=== PATIENT | male | born 1940 | race Caucasian/White ===

== ENCOUNTER 2021-04-11 21:21 | Observation (INO) | payer BC ==
[~2021-04-11] VITALS: Ht 175.3 cm; Wt 69.3 kg
[2021-04-11 21:30] VITALS: BP 127/76; PULSE 82; TEMP 99.1
--- NOTE | 2021-04-11 22:28 | NUR ---
PATIENT IS A DIRECT ADMIT FROM HOME. ADMITTED FOR HEMATURIA AND UNABLE TO VOID. STATED SYMPTOM STARTED AFTER HAVING A PROSTATE BIOPSY YESTERDAY. ALERT AND ORIENTED X4 FAMILY AT BEDSIDE. VSS. PATIENT C/O LOWER ABDOMEN DISCOMFORT. DR. VALDES MADE AWARE OF PATIENT ARRIVAL AND ORDER TO PLACE [address] LEVINE CATHER AND START CBI. LEVINE CATHETER INSERTED WITH BLOODY URINE OUTPUT DRAINED. PATIENT ORIENTED TO ROOM, CALL LIGHT WITHIN REACH.
[2021-04-11] MEDS ORDERED: ASPIRIN E.C. 8181 MG PO (22:43)
[2021-04-11] MEDS ORDERED: FLOMAX 0.40.4 MG/CAP PO (22:44)
[2021-04-11] MEDS ORDERED: MAXZIDE-25MG TA1 TAB PO (22:45)
[2021-04-11] MEDS ORDERED: TOPROL XL 25MG25 MG PO (22:47)
[2021-04-12] VITALS (15 sets, daily range): BP systolic 102–133; BP diastolic 54–78; PULSE 64–88; TEMP 97.8–99.1
--- NOTE | 2021-04-12 06:50 | NUR ---
BLADDER IRRIGATION DONE X3 WITH SMALL AMOUNT OF CLOTH.
--- NOTE | 2021-04-12 06:55 | NUR ---
resting in bed, bedside shift report received from MIGUELANGEL Carnes
--- NOTE | 2021-04-12 08:00 | NUR ---
remains resting in bed, full assessment completed, see interventions for further info, urine is light pink but when CBI slowed even for only a few minutes urine becomes very red again, CBI turned up to running at a fast rate and urine becomes light again,
--- NOTE | 2021-04-12 09:45 | NUR ---
sitting up in bed ready to eat breakfast, at bedside
[2021-04-12 10:40] LABS: HEMOGLOBIN 12.9 g/dl (13.5-18.0); MEAN CELL VOLUME 94 fl (80.0-100.0); MEAN CORPUSCULAR HEMOGLOBIN 33 pg (27.0-31.0); MEAN CORPUSCULAR HGB CONC 35 g/dl (33.0-37.0); MEAN PLATELET VOLUME 9.4 fl (7.4-10.4); PLATELET COUNT 202 K/mm3 (130-400); RED BLOOD COUNT 3.93 M/mm3 (4.20-5.60); REDCELL DISTRIBUTION WIDTH-CV 13.1 % (11.5-14.5)
--- NOTE | 2021-04-12 10:40 | NUR ---
entered room and CBI bags were empy, bloody drainage in catheter rubing and patient is c/o fullness, irrigated and mod number and clots removed, reconnected to CBI and urine begins to flow, pateint states feeling of fullness is better, spoke with Dr Ivey and will keep patient NPO for now
--- NOTE | 2021-04-12 10:45 | NUR ---
Initial visit; Patient thanked Software Controls Engineer for offering God's blessings and wishing him well.
[2021-04-12 10:46] LABS: HEMATOCRIT 36.8 % (42.0-52.0)
--- NOTE | 2021-04-12 11:00 | NUR ---
Dr Ivey called this nurse to check on patient, he and his were both notified that he is to have nothing else to eat or drink until after seen by Dr Ivey, explained that he will not become dehydrated as he is on IV fluids
--- NOTE | 2021-04-12 12:00 | NUR ---
medicated with levisin and tylenol for general discomfort and bladder spasm
--- NOTE | 2021-04-12 12:14 | NUR ---
is resting in bed at this time with eyes closed, CBI continues to run at a fast rate and urine is clear in tubing, the instant it is slowed the urine becomes bright red, will continue at current rate
--- NOTE | 2021-04-12 13:55 | NUR ---
sand car worker met with patient to discuss discharge plan. Patient lives at home with (Micaela [phone]) in [place]. Patient reports he is independent on all actvities of daily living and can ambulate independently. Patient see's Dr. Rubin Sultana for a PCP and uses [facility] for a pharmacy. Patient reports [facility] is established but doesn't think hospital has a copy. sand car worker will reach out to PCP office to see if they have one. Patient plans to discharge home when ready. Patient has no concerns. *Discharge plan: Home when ready*
--- NOTE | 2021-04-12 15:00 | NUR ---
again starting to c/o fullness, irrigated and had numerous smeall to medium clots but this was after numerous irrigations, MIGUELANGEL Campos also assisted with this, bedside shift report given to MIGUELANGEL Her
--- NOTE | 2021-04-12 16:50 | NUR ---
Patient to OR by bed.
--- NOTE | 2021-04-12 21:46 | NUR ---
PT RESTING IN BED. PT EXPRESSES DISCOMFORT THAT FEELS LIKE "PRESSURE" IN HIS BLADDER AREA. MANUALLY IRRIGATED AND WAS ABLE TO REMOVE SOME SMALL CLOTS. OUTPUT IS NOW A PALE PINK COLOR. PT STATES HE IS MORE COMFORTABLE NOW. PT TOLERATING DIET WELL POST PROCEDURE. CALL LIGHT WITHIN REACH. WILL CONTINUE TO MONITOR.
[2021-04-13 04:15] VITALS: BP 110/59; PULSE 76; TEMP 98.1
[2021-04-13 07:35] VITALS: BP 109/62; PULSE 68; TEMP 98
--- NOTE | 2021-04-13 09:00 | NUR ---
PATIENT IS A&O. VSS. DENIES PAIN OR NAUSEA. DC'D LEVINE PER UROLOGY ORDER AND INFUSED 250CC OF CBI. PATIENT TOLERATED WELL. PROVIDED POST LEVINE REMOVAL & 6 CUP ROUTINE EDUCATION. PATIENT VERBALIZED UNDERSTANDING. AT BEDSIDE. HEAD TO TOE ASSESSMENT COMPLETE. PATIENT IS INDEPENDENT IN ROOM AND HOPES TO DISCHARGE HOME LATER TODAY. NO OTHER NEEDS AT THIS TIME. CALL LIGHT IN REACH.
--- NOTE | 2021-04-13 09:35 | NUR ---
PATIENT WAS ABLE TO VOID 150CC OF RED-TINGED URINE WITH A FEW SMALL TISSUE CLOTS NOTED AFTER LEVINE WAS DC'D.
[2021-04-13 11:39] VITALS: BP 119/68; PULSE 66; TEMP 98.3
--- NOTE | 2021-04-13 15:45 | NUR ---
PATIENT HAS COMPLETED 6 CUP AND IS READY FOR DISCHARGE. GAVE DISCHARGE INSTRUCTIONS & OFFICE WILL CALL PATIENT FOR F/U. ANSWERED QUESTIONS/CONCERNS. DC'D LEFT HAND IV, COVERED SITE WITH GAUZE & COBAN. PATIENT IS PACKED, DRESSED AND DISCHARGED.
== END 2021-04-13 15:45 | disposition home or self-care (01) ==
LOC: SURG 21:21
PROVIDERS: ADMIT Urology
DX: N99.820 Postprocedural hemorrhage of a genitourinary system organ or structure following a genitourinary system procedure (principal); R31.0 Gross hematuria; N32.89 Other specified disorders of bladder; C61 Malignant neoplasm of prostate; I10 Essential (primary) hypertension; M19.90 Unspecified osteoarthritis, unspecified site; Z79.82 Long term (current) use of aspirin; Z79.899 Other long term (current) drug therapy
CPT/HCPCS: G0378; J1956; J2405; J2704; J3010; J3480